=== PATIENT | male | born 1965 | race African-American/Black ===

== ENCOUNTER 2021-08-22 14:19 | Emergency (ER) | payer MEDICAID ==
[~2021-08-22] VITALS: Ht 177.8 cm; Wt 136.0 kg
[2021-08-22] MEDS ORDERED: TETRACAINE 0.5% OPHTH DROPS 4ML LEFTEYE ONE (17:15)
[2021-08-22] MEDS ORDERED: FLUORESCEIN SODIUM 1MG/STRIP LEFTEYE ONE (17:15)
[2021-08-22 20:38] VITALS: BP 140/79
== END 2021-08-22 20:41 | disposition home or self-care (01) ==
LOC: ER 14:19
DX: S05.12XA Contusion of eyeball and orbital tissues, left eye, initial encounter (principal); H11.32 Conjunctival hemorrhage, left eye; S02.2XXA Fracture of nasal bones, initial encounter for closed fracture; H53.8 Other visual disturbances; R51.9 Headache, unspecified; Y00.XXXA Assault by blunt object, initial encounter; Y93.89 Activity, other specified; Y92.89 Other specified places as the place of occurrence of the external cause
CPT/HCPCS: 70486; 99284